=== PATIENT | female | born 1970 | race Caucasian/White ===

== ENCOUNTER → 2023-10-29 08:41 | Outpatient (BNVA) | payer SELFPAY | PROVIDERS: PCP Nurse Practitioner Family; Visit Provider Podiatrist Foot & Ankle Surgery | DX: M79.672 Pain in left foot (principal); M77.52 Other enthesopathy of left foot and ankle | CPT/HCPCS: 73630 ==

== ENCOUNTER 2024-05-08 04:39 | Emergency (ER) | payer SELFPAY ==
[2024-05-08] VITALS (7 sets, daily range): BP systolic 120–192; BP diastolic 74–106; PULSE 79–112; RESP 16–18; TEMP 36.7; O2SAT 95–97; BMI 29.9
[2024-05-08] MEDS: propranolol 20 mg Tablet PO (05:31)
[2024-05-08] MEDS: cloNIDine 0.1 mg Tablet PO (05:31)
--- NOTE | 2024-05-08 05:31 | ECG_ITS ---
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 Measurements Intervals [place] Rate: 93 P: 50 ME: 157 QRS: 49 QRSD: 81 T: 43 QT: 365 QTc: 454 Interpretive Statements SINUS RHYTHM No previous ECG available for comparison Electronically Signed On 05-09-2024 12:38:40 [employer] by Chasidy Moon M.D. [email or web address] [id number]
--- NOTE | 2024-05-08 05:32 | ED_ITS ---
Documented by User: Gianni Ghosh MD 05/08/24 05:46 HPI - General Adult 2 General: Chief complaint: General Medical Stated complaint: High BP back pain neck pain Time Seen by Provider: 05/08/24 04:57 History of Present Illness: 54-year-old female presents to the emerg ency department with elevated blood pressure. She reports that she woke up early this morning because her back was sore. She then started thinking about it and got worried that she may be having an atypical cardiac event. She has heard of people with back pain that have heart attacks. Patient says she suffers from severe anxiety. She is on fluoxetine 10 mg but thinks she needs to be on 20 mg (which she used to be on). Patient also reports she uses alprazolam 0.5 mg p.o. twice daily sparingly whenever she has to. She really tries not to take it. She reports that she lost her sister to cancer a few months ago and has been extremely on edge/anxious/grieving since then. She reports that over the last couple days she started taking her blood pressure and has noticed that has been elevated. She has a history of her blood pressure being in the 140s systolic but this week it has been elevated in the 160s and now in the emergency department up to 192/106. Patient reports she has no chest pain or pressure. She has no palpitations. Her heart rate is usually elevated when she is anxious. She denies any history of DVT or PE and has no extremity pain swelling or redness. She is not sure if her blood pressure is elevated because of her anxiety or whether she has essential hypertension. She reports that she would like to have her cardiac enzymes checked to make herself feel better and stop worrying about her heart. She reports her back is probably hurting because she has been lifting weights. The location of the back pain is right low thoracic paraspinal. It is tender to the touch in that area and massage in this area makes it feel better. Associated symptoms: Deny chest pain, dyspnea, headache(s), nausea, rash, syncope or vomiting Related Data Home Medications ?Medication ?Instructions ?Recorded ?Confirmed alprazolam 0.5 mg tablet (Xanax) 0.5 mg PO BID PRN anx iety 04/28/19 10/29/23 progesterone micronized 200 mg 200 mg PO DAILY 4 10/29/23 capsule Previous Rx's ?Medication ?Instructions ?Recorded clonidine HCl 0.1 mg tablet 0.1 mg PO BID PRN hyperten sive 05/08/24 urgency #14 tabs fluoxetine 20 mg capsule 20 mg PO DAILY 90 days #90 c aps 05/08/24 propranolol 20 mg tablet 20 mg PO Q6H PRN hypertensio n #30 05/08/24 tabs tizanidine 4 mg tablet 4 mg PO Q6H PRN muscle spast icity 05/08/24 #20 tabs Allergies Allergy/AdvReac Type Severity Reaction Status Date / Time No Known Allergies Allergy Verified 05/08/24 04:57 Review of Systems 2 General: Reports: 10 or more systems reviewed and unremarkable except in HPI and below Const: Denies: fever(s), chills or body aches Eyes: Denies: change in vision ENMT: Denies: throat pain Card: Denies: chest pain, edema or syncope Resp: Denies: dyspnea or productive cough GI: Denies: abdominal pain, nausea, vomiting or diarrhea : Denies: flank pain, dysuria or urinary frequency Musc: Denies: neck pain, extremity pain or extremity swelling Skin/Breast: Denies: rash or erythema Neuro: Denies: headache(s), numbness in extremities, weakness in extremities, lack of coordination or difficulty walking Psych: Reports: anxiety, irritability and difficulty concentrating PFSH ED 2 PFSH: Medical History Anxiety and depression Hyperlipidemia Family History Other Hypertension Kidney disease Social History Smoking and tobacco/nicotine status: never used tobacco/nicotine Alcohol intake: current Alcohol intake frequency: holidays/special occasions only Substance/Drug Use: never Current gender identity: Female Physical Exam 2 Narrative: EXAM NARRATIVE: Myofascial trigger point with tenderness right thoracic paraspinal about T8. Patient reports that doing firm acupressure of the area actually makes it feel better. She says this is the back pain that was bothering her. Const: COMMON NORMALS: no limitations, alert and well nourished EXAM LIMITATIONS: no altered mental status HENMT: COMMON NORMALS: normocephalic, atraumatic and external ears normal H EAD & SCALP: normocephalic and atraumatic EXTERNAL EAR: Yes external ears normal MOUTH: no muffled voice Eye: COMMON NORMALS: EOMs intact bilaterally, conjunctivae normal and no scleral icterus CONJUNCTIVA: Yes conjunctivae normal Neck/C-Spine: COMMON NORMALS: no JVD GENERAL: Yes normal visual inspection and Yes trachea midline Resp: COMMON NORMALS: normal respiratory effort, No use of accessory muscles and clear to auscultation bilaterally AUSCULTATION: clear to auscultation bilaterally Cardio: COMMON NORMALS: no JVD and regular rhythm RATE: tachycardic R HYTHM: regular rhythm GI: COMMON NORMALS: Soft to palpation and non-tender PALPATION: Yes Soft to palpation and No Guarding due to palpation present (GI) Extremity: COMMON NORMALS: normal to inspection Neuro: COMMON NORMALS: moves all extremities, no focal motor deficits and no sensory deficits noted SENSORIUM/ORIENTATION: Yes alert SPEECH: speech normal Psych: COMMON NORMALS: mental status grossly normal, Normal thought process present, cooperative, normal affect and speech normal SPEECH: Yes normal speech THOUGHT PROCESS: Normal thought process present Skin: COMMON NORMALS: no rashes or lesions noted, turgor normal and no jaundice GENERAL SKIN EXAM: no rashes or lesions noted and turgor normal Course 2 Vital Signs: Vital signs: Vital Signs Temperature 98.1 F 05/08/24 04:50 Pulse Rate 80 05/08/24 08:35 Respiratory Rate 17 05/08/24 08:05 Blood Pressure 153/87 05/08/24 08:35 Pulse Oximetry 97 05/08/24 08:35 Oxygen Delivery Me thod Room Air 05/08/24 04:50 [facility] - General Adult Medical Decision Making Patient presents with elevated blood pressure. It is unclear whether this is essential hypertension, secondary hypertension (anxiety) or a mixture of both. The patient had some right thoracic paraspinal back tenderness. It is reproducible and she has a notable knot in her muscle there. Acupressure makes it feel better. The back pain does not sound like pulmonary embolism, dissection, esophagitis, etc. It sounds like a musculoskeletal etiology. Concerning her blood pressure, she does not have visual changes, chest discomfort, swelling, headaches, strokelike symptoms. Patient does have some Xanax with her. I asked her to take 0.5 mg of her Xanax to see if it would help bring her blood pressure down. Additionally, many give her a dose of clonidine 0.1 mg and propranolol 20 mg. This should help simultaneously treat her blood pressure, heart rate and anxiety. The patient does take progesterone but she takes it only to achieve a normal level. No clinical signs of DVT. Patient reports that she would feel better doing a EKG, troponin, and checking her basic labs. She is self-pay and reports that she would like to skip the chest x-ray at this time. I have a low suspicion for heart failure, pneumothorax, pneumonia, effusion. EKG was obtained at 5:31 AM. EP interpretation. Sinus rhythm. Ventricular rate of 93. Normal axis, normal intervals, no concerning ST segment elevations or depressions. Update: If we can get the patient's blood pressure improved and her labs are reassuring, I think she can be discharged to home with as needed propranolol and clonidine. We will increase her fluoxetine from 10 mg daily to 20 mg daily. She will need to do a blood pressure journal and follow-up with PCP. Lab Data 05/08/24 05:40 05/08/24 05:40 Laboratory Results WBC 7.41 10^3/uL (3.29-11.43) 05/08/24 05:40 RBC 4.50 10^6/uL (3.85-5.65) 05/08/24 05:40 Hgb 13.80 g/dL (11.27-16.99) 05/08/24 05:40 Hct 40.2 % (36-47) 05/08/24 05:40 MCV 89.3 fl (85-98) 05/08/24 05:40 MCH 30.7 pg (27-33) 05/08/24 05:40 MCHC 34.3 g/dL (30-55) 05/08/24 05:40 RDW 12.7 % (12.1-15.1) 05/08/24 05:40 Plt Count 341 10^3/cmm (157-399) 05/08/24 05:40 MPV 8.8 fL (7.4-10.4) 05/08/24 05:40 Neut % (Auto) 62.0 % 05/08/24 05:40 Lymph % (Auto) 26.3 % 05/08/24 05:40 [place] % (Auto) 7.7 % 05/08/24 05:40 Eos % (Auto) 3.1 % 05/08/24 05:40 Baso % (Auto) 0.8 % 05/08/24 05:40 Neut # (Auto) 4.59 10^3/uL (1.8-7.7) 05/08/24 05:40 Lymph # (Auto) 2.0 10^3/uL (0.8-4.8) 05/08/24 05:40 [place] # (Auto) 0.6 10^3/uL (0.2-0.9) 05/08/24 05:40 Eos # (Auto) 0.2 10^3/uL (0.0-0.8) 05/08/24 05:40 Baso # (Auto) 0.1 10^3/uL (0.0-0.1) 05/08/24 05:40 Nucleated RBC % (auto) 0 % 05/08/24 05:40 Nucleated RBCs # 0.0 /100WBC 05/08/24 05:40 Sodium 133 mmol/L (136-145) L 05/08/24 05:40 Potassium 4.1 mmol/L (3.5-5.1) 05/08/24 05:40 Chloride 100 mmol/L (98-107) 05/08/24 05:40 Carbon Dioxide 21 mmol/L (22-29) L 05/08/24 05:40 Anion Gap 16.1 (5-19) 05/08/24 05:40 BUN 14 mg/dL (6-20) 05/08/24 05:40 Creatinine 0.6 mg/dL (0.5-0.9) 05/08/24 05:40 GFR Calculation 103.8 mL/min (90-130) 05/08/24 05:40 Glucose 115 mg/dL (65-115) 05/08/24 05:40 Calculated Osmolality 277 mOsm/kg (285-295) L 05/08/24 05:40 Calcium 9.3 mg/dL (8.5-10.5) 05/08/24 05:40 Total Bilirubin 0.2 mg/dL (0.15-1.2) 05/08/24 05:40 Direct Bilirubin 0.20 mg/dL (0.00-0.30) 05/08/24 05:40 AST 17 U/L (0-32) 05/08/24 05:40 ALT 19 U/L (0-33) 05/08/24 05:40 Alkaline Phosphatase 100 U/L (35-105) 05/08/24 05:40 Troponin T Baseline < 6 ng/L (0-10) 05/08/24 05:40 Troponin T 120 Minute 6.00 ng/L (0-10) 05/08/24 07:41 Delta Troponin T [id number] ABS# (0-10) 05/08/24 07:41 Total Protein 6.9 g/dL (6.6-8.7) 05/08/24 05:40 Albumin 4.3 g/dL (3.5-5.2) 05/08/24 05:40 Globulin 2.6 g/dL (1.3-4.6) 05/08/24 05:40 No radiology studies performed this visit Discharge Plan Discharge Patient Disposition: Home Clinical Impression: Elevated blood pressure reading in office without diagnosis of hypertension, Stress and adjustment reaction, Musculoskeletal back pain Condition: Stable Prescriptions: New fluoxetine 20 mg capsule 20 mg PO DAILY 90 Days Qty: 90 0RF propranolol 20 mg tablet 20 mg PO Q6H PRN (Reason: hypertension) Qty: 30 0RF clonidine HCl 0.1 mg tablet 0.1 mg PO BID PRN (Reason: hypertensive urgency) Qty: 14 0RF tizanidine 4 mg tablet 4 mg PO Q6H PRN (Reason: muscle spasticity) Qty: 20 0RF Rx Instructions: do not exceed 3 doses per 24 hrs Discontinued fluoxetine [Prozac] 10 mg capsule 10 mg PO DAILY 30 Days Qty: 30 11RF No Action alprazolam [Xanax] 0.5 mg tablet 0.5 mg PO BID PRN (Reason: anxiety) progesterone micronized 200 mg capsule 200 mg PO DAILY Discharge Orders: Discharge ED (Routine); Ordered 05/08/24 Ordered By: Brian Graham Referrals: Rose Pantoja APN [Primary Care Provider] - 4-7 days (Follow-up hypertension) Patient Instructions: Hypertension (ED), Opioid Safety, Pain Management Activity Restrictions/Additional Instructions: Thank you for choosing [facility] for your healthcare needs today. It is very important that you follow up as instructed or that you return to the Emergency Department should you have concerns or if your condition changes or worsens in any way. You are seen in the emergency room with complaint of back pain cardiac enzymes and your EKGs were normal. There is no sign of acute gallbladder disease or biliary colic. Based on your exam I believe your back pain is due to musculoskeletal cause. It is not unusual for people to have musculoskeletal back pain without being able to identify a particular precipitating event. Follow-up with your primary care doctor within the next 2 weeks to reevaluate your blood pressure. Recommend increasing her fluoxetine to 20 mg daily gave you as needed clonidine propranolol to use for blood pressure and tizanidine to use for back pain. Print Language: Bolivian Coding Level of Care Code ED Iron Miner for Chg Fwd Documented by User: Brian Graham DO 05/08/24 08:54 HPI - General Adult 2 General: Chief complaint: General Medical Stated complaint: High BP back pain neck pain Time Seen by Provider: 05/08/24 04:57 Related Data Home Medications ?Medication ?Instructions ?Recorded ?Confirmed alprazolam 0.5 mg tablet (Xanax) 0.5 mg PO BID PRN anx iety 04/28/19 10/29/23 progesterone micronized 200 mg 200 mg PO DAILY 4 10/29/23 capsule Previous Rx's ?Medication ?Instructions ?Recorded clonidine HCl 0.1 mg tablet 0.1 mg PO BID PRN hyperten sive 05/08/24 urgency #14 tabs fluoxetine 20 mg capsule 20 mg PO DAILY 90 days #90 c aps 05/08/24 propranolol 20 mg tablet 20 mg PO Q6H PRN hypertensio n #30 05/08/24 tabs tizanidine 4 mg tablet 4 mg PO Q6H PRN muscle spast icity 05/08/24 #20 tabs Allergies Allergy/AdvReac Type Severity Reaction Status Date / Time No Known Allergies Allergy Verified 05/08/24 04:57 PFS ED 2 PFS: Medical History Anxiety and depression Hyperlipidemia Family History Other Hypertension Kidney disease Social History Smoking and tobacco/nicotine status: never used tobacco/nicotine Alcohol intake: current Alcohol intake frequency: holidays/special occasions only Substance/Drug Use: never Current gender identity: Female Course 2 Vital Signs: Vital signs: Vital Signs Temperature 98.1 F 05/08/24 04:50 Pulse Rate 80 05/08/24 08:35 Respiratory Rate 17 05/08/24 08:05 Blood Pressure 153/87 05/08/24 08:35 Pulse Oximetry 97 05/08/24 08:35 Oxygen Delivery Me thod Room Air 05/08/24 04:50 MDM - General Adult Medical Decision Making Patient presents with elevated blood pressure. It is unclear whether this is essential hypertension, secondary hypertension (anxiety) or a mixture of both. The patient had some right thoracic paraspinal back tenderness. It is reproducible and she has a notable knot in her muscle there. Acupressure makes it feel better. The back pain does not sound like pulmonary embolism, dissection, esophagitis, etc. It sounds like a musculoskeletal etiology. Concerning her blood pressure, she does not have visual changes, chest discomfort, swelling, headaches, strokelike symptoms. Patient does have some Xanax with her. I asked her to take 0.5 mg of her Xanax to see if it would help bring her blood pressure down. Additionally, many give her a dose of clonidine 0.1 mg and propranolol 20 mg. This should help simultaneously treat her blood pressure, heart rate and anxiety. The patient does take progesterone but she takes it only to achieve a normal level. No clinical signs of DVT. Patient reports that she would feel better doing a EKG, troponin, and checking her basic labs. She is self-pay and reports that she would like to skip the chest x-ray at this time. I have a low suspicion for heart failure, pneumothorax, pneumonia, effusion. EKG was obtained at 5:31 AM. EP interpretation. Sinus rhythm. Ventricular rate of 93. Normal axis, normal intervals, no concerning ST segment elevations or depressions. Update: If we can get the patient's blood pressure improved and her labs are reassuring, I think she can be discharged to home with as needed propranolol and clonidine. We will increase her fluoxetine from 10 mg daily to 20 mg daily. She will need to do a blood pressure journal and follow-up with PCP. Care assumed at change of shift. Patient corded the nursing about her gallbladder possibly being the cause of symptoms her liver enzymes white count are normal repeat exam there is no biliary colic negative Restrepo sign. EKG does not show any acute changes shows a normal sinus rhythm. Cardiac enzymes trended negative. Her other labs are unremarkable. Will go ahead and discharge her home. Lab Data 05/08/24 05:40 05/08/24 05:40 Laboratory Results WBC 7.41 10^3/uL (3.29-11.43) 05/08/24 05:40 RBC 4.50 10^6/uL (3.85-5.65) 05/08/24 05:40 Hgb 13.80 g/dL (11.27-16.99) 05/08/24 05:40 Hct 40.2 % (36-47) 05/08/24 05:40 MCV 89.3 fl (85-98) 05/08/24 05:40 MCH 30.7 pg (27-33) 05/08/24 05:40 MCHC 34.3 g/dL (30-55) 05/08/24 05:40 RDW 12.7 % (12.1-15.1) 05/08/24 05:40 Plt Count 341 10^3/cmm (157-399) 05/08/24 05:40 MPV 8.8 fL (7.4-10.4) 05/08/24 05:40 Neut % (Auto) 62.0 % 05/08/24 05:40 Lymph % (Auto) 26.3 % 05/08/24 05:40 [place] % (Auto) 7.7 % 05/08/24 05:40 Eos % (Auto) 3.1 % 05/08/24 05:40 Baso % (Auto) 0.8 % 05/08/24 05:40 Neut # (Auto) 4.59 10^3/uL (1.8-7.7) 05/08/24 05:40 Lymph # (Auto) 2.0 10^3/uL (0.8-4.8) 05/08/24 05:40 [place] # (Auto) 0.6 10^3/uL (0.2-0.9) 05/08/24 05:40 Eos # (Auto) 0.2 10^3/uL (0.0-0.8) 05/08/24 05:40 Baso # (Auto) 0.1 10^3/uL (0.0-0.1) 05/08/24 05:40 Nucleated RBC % (auto) 0 % 05/08/24 05:40 Nucleated RBCs # 0.0 /100WBC 05/08/24 05:40 Sodium 133 mmol/L (136-145) L 05/08/24 05:40 Potassium 4.1 mmol/L (3.5-5.1) 05/08/24 05:40 Chloride 100 mmol/L (98-107) 05/08/24 05:40 Carbon Dioxide 21 mmol/L (22-29) L 05/08/24 05:40 Anion Gap 16.1 (5-19) 05/08/24 05:40 BUN 14 mg/dL (6-20) 05/08/24 05:40 Creatinine 0.6 mg/dL (0.5-0.9) 05/08/24 05:40 GFR Calculation 103.8 mL/min (90-130) 05/08/24 05:40 Glucose 115 mg/dL (65-115) 05/08/24 05:40 Calculated Osmolality 277 mOsm/kg (285-295) L 05/08/24 05:40 Calcium 9.3 mg/dL (8.5-10.5) 05/08/24 05:40 Total Bilirubin 0.2 mg/dL (0.15-1.2) 05/08/24 05:40 Direct Bilirubin 0.20 mg/dL (0.00-0.30) 05/08/24 05:40 AST 17 U/L (0-32) 05/08/24 05:40 ALT 19 U/L (0-33) 05/08/24 05:40 Alkaline Phosphatase 100 U/L (35-105) 05/08/24 05:40 Troponin T Baseline < 6 ng/L (0-10) 05/08/24 05:40 Troponin T 120 Minute 6.00 ng/L (0-10) 05/08/24 07:41 Delta Troponin T 0.62661 ABS# (0-10) 05/08/24 07:41 Total Protein 6.9 g/dL (6.6-8.7) 05/08/24 05:40 Albumin 4.3 g/dL (3.5-5.2) 05/08/24 05:40 Globulin 2.6 g/dL (1.3-4.6) 05/08/24 05:40 Discharge Plan Discharge Patient Disposition: Home Clinical Impression: Elevated blood pressure reading in office without diagnosis of hypertension, Stress and adjustment reaction, Musculoskeletal back pain Condition: Stable Prescriptions: New fluoxetine 20 mg capsule 20 mg PO DAILY 90 Days Qty: 90 0RF propranolol 20 mg tablet 20 mg PO Q6H PRN (Reason: hypertension) Qty: 30 0RF clonidine HCl 0.1 mg tablet 0.1 mg PO BID PRN (Reason: hypertensive urgency) Qty: 14 0RF tizanidine 4 mg tablet 4 mg PO Q6H PRN (Reason: muscle spasticity) Qty: 20 0RF Rx Instructions: do not exceed 3 doses per 24 hrs Discontinued fluoxetine [Prozac] 10 mg capsule 10 mg PO DAILY 30 Days Qty: 30 11RF No Action alprazolam [Xanax] 0.5 mg tablet 0.5 mg PO BID PRN (Reason: anxiety) progesterone micronized 200 mg capsule 200 mg PO DAILY Discharge Orders: Discharge ED (Routine); Ordered 05/08/24 Ordered By: Brian Graham Referrals: Rose Pantoja APN [Primary Care Provider] - 4-7 days (Follow-up hypertension) Patient Instructions: Hypertension (ED), Opioid Safety, Pain Management Activity Restrictions/Additional Instructions: Thank you for choosing [facility] for your healthcare needs today. It is very important that you follow up as instructed or that you return to the Emergency Department should you have concerns or if your condition changes or worsens in any way. You are seen in the emergency room with complaint of back pain cardiac enzymes and your EKGs were normal. There is no sign of acute gallbladder disease or biliary colic. Based on your exam I believe your back pain is due to musculoskeletal cause. It is not unusual for people to have musculoskeletal back pain without being able to identify a particular precipitating event. Follow-up with your primary care doctor within the next 2 weeks to reevaluate your blood pressure. Recommend increasing her fluoxetine to 20 mg daily gave you as needed clonidine propranolol to use for blood pressure and tizanidine to use for back pain. Print Language: Bolivian Coding Level of Care Code ED Iron Miner for Arlene Gamez
[2024-05-08 05:48] LABS: Basophils # 0.1 10^3/uL (0.0-0.1); Basophils % 0.8 %; Eosinophils # 0.2 10^3/uL (0.0-0.8); Eosinophils % 3.1 %; Hematocrit 40.2 % (36-47); Lymphocytes % 26.3 %; Mean Corpuscular HGB Conc 34.3 g/dL (30-55); Mean Corpuscular Hemoglobin 30.7 pg (27-33); Mean Corpuscular Volume 89.3 fl (85-98); Mean Platelet Volume 8.8 fL (7.4-10.4); Monocytes # 0.6 10^3/uL (0.2-0.9); Monocytes % 7.7 %; Neutrophils # 4.59 10^3/uL (1.8-7.7); Nucleated Red Blood Cells % 0 %; Platelet Count 341 10^3/cmm (157-399); Red Cell Distribution Width 12.7 % (12.1-15.1); White Blood Count 7.41 10^3/uL (3.29-11.43)
[2024-05-08 06:14] LABS: Troponin(5th) Baseline < 6 ng/L (0-10)
[2024-05-08 06:25] LABS: Anion Gap 16.1 (5-19); Blood Urea Nitrogen 14 mg/dL (6-20); Calcium 9.3 mg/dL (8.5-10.5); Carbon Dioxide 21 mmol/L (22-29); Chloride 100 mmol/L (98-107); Creatinine Clr Calc Pharmacy 100.0388; Glomerular Filtration Rate 103.8 mL/min (90-130); Glucose 115 mg/dL (65-115); Osmolality Calculated 277 mOsm/kg (285-295); Potassium 4.1 mmol/L (3.5-5.1); Sodium 133 mmol/L (136-145)
--- NOTE | 2024-05-08 07:22 | ECG_ITS ---
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 Measurements Intervals [place] Rate: 81 P: 42 OK: 159 QRS: 56 QRSD: 81 T: 44 QT: 388 QTc: 452 Interpretive Statements SINUS RHYTHM No previous ECG available for comparison Electronically Signed On 05-08-2024 08:08:26 MIGRATORY WORKER by Palmer Santana M.D. [email or web address] [id number]
[2024-05-08 07:37] LABS: Alanine Aminotransferase 19 U/L (0-33); Albumin Level 4.3 g/dL (3.5-5.2); Alkaline Phosphatase 100 U/L (35-105); Aspartate Amino Transferase 17 U/L (0-32); Globulin 2.6 g/dL (1.3-4.6); Total Bilirubin 0.2 mg/dL (0.15-1.2); Total Protein 6.9 g/dL (6.6-8.7)
[2024-05-08 08:15] LABS: Troponin 5 2HR Delta 0.00001 ABS# (0-10)
== END 2024-05-08 08:36 | disposition home or self-care (01) ==
PROVIDERS: Emergency Medicine; Emergency Provider Family Medicine; PCP Nurse Practitioner Family
DX: R03.0 Elevated blood-pressure reading, without diagnosis of hypertension (principal); F43.9 Reaction to severe stress, unspecified; M54.89 Other dorsalgia; E78.5 Hyperlipidemia, unspecified
CPT/HCPCS: 36415; 80048; 80076; 84484; 85025; 93005; 99284